=== PATIENT | male | born 2000 | race Caucasian/White ===

== ENCOUNTER 2021-11-12 11:41 | Emergency (ER) | payer BC, MEDICAID, SELFPAY ==
[2021-11-12 11:51] VITALS: BP 153/88; PULSE 99; RESP 18; TEMP 36.7; O2SAT 98; BMI 23.7
[2021-11-12 11:53] VITALS: BP 168/106; RESP 18; TEMP 36.9; O2SAT 99
--- NOTE | 2021-11-12 11:58 | XRR_ITS ---
PROCEDURE INFORMATION: Exam: XR Right Foot Exam date and time: 11/12/2021 12:16 PM Age: 21 years old Clinical indication: Injury or trauma; Other: Kicked a ax; Laceration; Foot; Right; Foreign body involvement not specified TECHNIQUE: Imaging protocol: XR Right foot. Views: 3 or more views. COMPARISON: No relevant prior studies available. FINDINGS: Bones/joints: Negative for acute bony abnormality. Soft tissues: Normal. XR/XR foot RT min 3V* [id number] IMPRESSION: 1. No acute bone abnormality. 2. Negative for soft tissue foreign body
--- NOTE | 2021-11-12 12:00 | ED_ITS ---
HPI - Extremity Problem General: Chief complaint: Extremity Injury, Lower Stated complaint: Cut the bottom of his foot deep Time Seen by Provider: 11/12/21 11:43 Source: patient Mode of arrival: ambulatory Limitations: no limitations History of Present Illness: 21-year-old male who states that he had an axis stuck in his stomach so he tried to kick it is going up. He states that the act went through his boot and he has a laceration to the bottom of his foot. States it was bleeding inside roughly 3 cm laceration to the bottom of his foot he is not up-to-date on his tetanus he states he has pain he rates a 2 out of 10 denies any other injuries. Associated symptoms: Deny chest pain, fever(s) or rash Review of Systems Const: Denies: fever(s), chills, body aches or change in appetite Eyes: Denies: blurry vision or eye discomfort ENMT: Denies: throat pain or dental pain Card: Denies: chest pain Resp: Denies: dyspnea GI: Denies: abdominal pain, nausea, vomiting or diarrhea : Denies: dysuria Musc: Denies: neck pain or back pain Skin/Breast: Denies: rash Neuro: Denies: headache(s) Psych: Denies: depression Isaías/Lymph: Denies: easy bruising All/Imm: Denies: urticaria Physical Exam Const: COMMON NORMALS: no acute distress, patient oriented x3 and healthy appearing HENMT: COMMON NORMALS: normocephalic and atraumatic HEAD & SCALP: normocephalic and atraumatic Eye: COMMON NORMALS: Equal, round and reactive pupils present and EOMs intact bilaterally PUPIL: Yes Equal, round and reactive pupils present Neck/C-Spine: COMMON NORMALS: full ROM and supple Chest: COMMONS NORMALS: normal inspection of the chest Resp: COMMON NORMALS: normal respiratory effort Cardio: COMMON NORMALS: regular rate, regular rhythm and No murmurs present (Cardio) RATE: regular rate RHYTHM: regular rhythm GI: INSPECTION: Yes normal to inspection Extremity: COMMON NORMALS: normal to inspection and full ROM NARRATIVE EXTREMITY EXAM: 3 cm laceration to right medial foot bleeding is controlled at this time Neuro: COMMON NORMALS: patient oriented x3, moves all extremities and no focal motor deficits Psych: COMMON NORMALS: mental status grossly normal, Normal thought process present and cooperative THOUGHT PROCESS: Normal thought process present Skin: COMMON NORMALS: no rashes or lesions noted and no wounds GENERAL SKIN EXAM: no rashes or lesions noted Procedures Laceration Laceration 1: Site: lower extremity Side (If applicable): right Size (cm): 3 Description: linear Depth: simple, single layer Local Anesthetic: lidocaine 1% Amount of anesthesia used (mL): 10 Pre-repair: wound explored and irrigated extensively Skin layer closed with: other (prolene) Size (cm): 4-0 Number of sutures: 3 Technique: simple, interrupted Course Vital Signs: Vital signs: Vital Signs Temperature 98.1 F 11/12/21 11:51 Pulse Rate 99 11/12/21 11:51 Respiratory Rate 18 11/12/21 11:51 Blood Pressure 153/88 11/12/21 11:51 Pulse Oximetry 98 11/12/21 11:51 MDM - Extremity (Nontraumatic) Medical Decision Making Patient presents here with foot laceration to right lower foot no signs of deep structure damage wound was cleaned and irrigated thoroughly here he stable for discharge we will place him on pain meds he had 3 sutures placed he is having removed in 10 days. Discharge Plan Discharge Patient Disposition: Home Clinical Impression: Laceration of foot Qualifiers: Encounter type: initial encounter Laterality: right Qualified Code(s): S91.311A - Laceration without foreign body, right foot, initial encounter Condition: Stable Prescriptions: New Naprosyn 500 mg tablet 500 mg PO BID PRN (Reason: pain) Qty: 20 0RF hydrocodone-acetaminophen 5-325 mg tablet 1 tab PO Q6H PRN (Reason: pain) Qty: 8 0RF Discharge Orders: Discharge ED (Routine); Ordered 11/12/21 Ordered By: Jared Davalos Referrals: Wojciech Garza, [facility] [Primary Care Provider] - Discharge Diet: Advance as tolerated Discharge Activity: Resume usual activity Patient Instructions: Care For Your Stitches (ED), Laceration (ED) Activity Restrictions/Additional Instructions: suture removal in 10 days Stand Alone Forms: Work/School Release Coding Level of Care Code ED Fluid Jet Cutter Operator for Donaldo Vance
[2021-11-12] MEDS: HYDROcodone-acetaminophen 5-325 mg Tablet 1 TAB PO (12:14)
[2021-11-12] MEDS: tetanus-dipt-pertussis 0.5 mL SDV IM (12:15)
[2021-11-12 12:46] VITALS: BP 163/65; PULSE 73; RESP 16; O2SAT 98
== END 2021-11-12 12:47 | disposition home or self-care (01) ==
PROVIDERS: Emergency Provider Emergency Medicine; PCP Nurse Practitioner
DX: S91.311A Laceration without foreign body, right foot, initial encounter (principal); W26.8XXA Contact with other sharp object(s), not elsewhere classified, initial encounter; Z23 Encounter for immunization
CPT/HCPCS: 12002; 73630; 90471; 90715; 99283

== ENCOUNTER 2022-04-02 10:19 | Emergency (ER) | payer BC, MEDICAID, SELFPAY ==
[2022-04-02 10:35] VITALS: BP 134/68; PULSE 92; RESP 16; TEMP 36.9; O2SAT 100; BMI 23.1
--- NOTE | 2022-04-02 11:09 | ED_ITS ---
HPI - Dental/Oral General: Chief complaint: Dental/Oral Stated complaint: Tooth Pain Time Seen by Provider: 04/02/22 10:26 History of Present Illness: 21-year-old male presents with pain for the right upper last molar. Patient reports has been going quite a while but is gotten worse over the last couple days. Patient reports that he cannot get into see the dentist until April 24. Patient presents today because of the pain. Patient reports that hurts if the air touches it, food or liquids. Patient with no other complaints Associated symptoms: Denies fever(s) Review of Systems Const: Denies: fever(s), chills or fatigue ENMT: Reports: dental pain; Denies: throat pain Card: Denies: chest pain or palpitations Resp: Denies: dyspnea or productive cough GI: Denies: abdominal pain, nausea or vomiting Musc: Denies: neck pain or back pain Skin/Breast: Denies: rash Physical Exam Const: COMMON NORMALS: no acute distress, average body habitus and patient oriented x3 HENMT: TEETH & GINGIVA IMAGES: 1. Severe fractured tooth with root exposure Resp: COMMON NORMALS: normal respiratory effort, No use of accessory muscles and clear to auscultation bilaterally AUSCULTATION: clear to auscultation bilaterally Cardio: COMMON NORMALS: regular rate and regular rhythm RATE: regular rate RHYTHM: regular rhythm GI: COMMON NORMALS: Normal to inspection, nondistended, normoactive bowel sounds present, Soft to palpation and non-tender PALPATION: Yes Soft to palpation Neuro: COMMON NORMALS: patient oriented x3, moves all extremities and no focal motor deficits Skin: COMMON NORMALS: no rashes or lesions noted and no wounds GENERAL SKIN EXAM: no rashes or lesions noted Course Vital Signs: Vital signs: Vital Signs Temperature 98.4 F 04/02/22 11:39 Pulse Rate 92 04/02/22 11:39 Respiratory Rate 16 04/02/22 11:39 Blood Pressure 134/68 04/02/22 11:39 Pulse Oximetry 100 04/02/22 11:39 Oxygen Delivery Me thod 04/02/22 10:35 MDM - Dental/Oral Medical Decision Making Patient with severe fractured tooth with likely surrounding infection. We will give him a couple hydrocodone's, start him on amoxicillin. Recommend he use an [id number] temporary filling and get into the dentist as soon as possible Discharge Plan Discharge Patient Disposition: Home Clinical Impression: Fracture of tooth Condition: Stable Prescriptions: New amoxicillin 500 mg tablet 500 mg PO BID 10 Days Qty: 20 0RF hydrocodone-acetaminophen 5-325 mg tablet 1 tab PO Q6H PRN (Reason: pain) Qty: 7 0RF clindamycin HCl 300 mg capsule 300 mg PO Q8H 10 Days Qty: 30 0RF No Action Naprosyn 500 mg tablet 500 mg PO BID PRN (Reason: pain) Qty: 20 0RF hydrocodone-acetaminophen 5-325 mg tablet 1 tab PO Q6H PRN (Reason: pain) Qty: 8 0RF Discharge Orders: Discharge ED (Routine); Ordered 04/02/22 Ordered By: Edmundo Morrison Referrals: Wojciech Garza FNP-C [Primary Care Provider] - Discharge Diet: Advance as tolerated Discharge Activity: Resume usual activity and Increase activity as tolerated Patient Instructions: Dental Caries (Cavities), Toothache (ED), Opioid Safety, Pain Management Activity Restrictions/Additional Instructions: Please call your dentist and see if you can get in sooner. Otherwise follow-up with your primary care provider if you need further pain management Coding Level of Care Code ED Reclamation Worker for Chg Fwd Exam Detailed
[2022-04-02 11:39] VITALS: BP 134/68; PULSE 92; RESP 16; TEMP 36.9; O2SAT 100
== END 2022-04-02 11:42 | disposition home or self-care (01) ==
PROVIDERS: Emergency Provider Student in an Organized Health Care Education/Training Program; PCP Nurse Practitioner
DX: S02.5XXA Fracture of tooth (traumatic), initial encounter for closed fracture (principal); X58.XXXA Exposure to other specified factors, initial encounter
CPT/HCPCS: 99284